=== PATIENT | male | born 1975 | race Caucasian/White ===

== ENCOUNTER 2022-11-25 21:39 | Emergency (ER) | payer OTHER, SELFPAY ==
[2022-11-25 21:47] VITALS: BP 145/105; PULSE 87; RESP 18; TEMP 36.6; O2SAT 99; BMI 32.3
[2022-11-25] MEDS: PROPARACAINE 0.5% OPHTH SOL 1 DROPS EYE-LEFT (22:03)
[2022-11-25] MEDS: FLUORESCEIN 1 MG STRIP EYE-BOTH (22:03)
--- NOTE | 2022-11-25 23:02 | ED_ITS ---
HPI - General Adult General Chief complaint: Eye Problems Stated complaint: L eye problems Time Seen by Provider: 11/25/22 22:39 Source: patient Mode of arrival: Ambulatory History of Present Illness HPI narrative: 47-year-old male here for evaluation of irritation to his left eye. He states that for the past day or so his left eye has been swollen and irritated. He does have a history of allergies and takes allergy medication but he is no right eye symptoms began his medications have not been affecting anything with his left eye. He is had no vision changes other than some blurry vision because of all the watering. No foreign body sensation. He does wear corrective lenses. Related Data Previous Rx's Medication Instructions Recorded erythromycin 5 mg/gram (0.5 %) eye 0.5 inch EYE-LEFT TID 3 days #3.5 11/25/22 ointment grams Allergies Allergy/AdvReac Type Severity Reaction Status Date / Time No Known Drug Allergies Allergy Verified 11/25/22 21:47 Review of Systems Eyes Eyes: Reports system reviewed and no additional complaints, except as documented ENT Ears, Nose, Mouth, and Throat: Reports system reviewed and no additional complaints, except as documented Integumentary/Breasts Skin/Breast: Reports system reviewed and no additional complaints, except as documented Patient History Social History Smoking Status: Never smoker Smoking Status: Never smoker Substance Use Type: does not use Exam Initial Vital Signs Initial Vital Signs: Vital Signs Temperature 98 F 11/25/22 21:47 Pulse Rate 87 11/25/22 21:47 Respiratory Rate 18 11/25/22 21:47 Blood Pressure 145/105 H 11/25/22 21:47 Pulse Oximetry 99 11/25/22 21:47 Oxygen Delivery Method Room Air 11/25/22 21:47 Eyes Other: Patient does obvious irritation to his left eye. With fluorescein staining there does appear to be a small uptake with potential foreign body long the visual axis at approximately 0400 hours position. Pupils are equal round and reactive. No sign of any open globe. Procedures Foreign Body EYE Location: eye (L) Topical anesthetic used: proparacaine Foreign body: metal Evidence of corneal penetration: No Technique: cotton tip swab, needle and electric enrique Procedure performed under: slit-lamp Post-procedure medication: ophthalmic antibiotic Patient tolerated procedure: well and no complications Course Orders Ordered: Discontinued Medications Erythromycin (Erythromycin Ophth 1 Gm Oint) 1 applic EYE-LEFT NOW ONE Stop: 11/25/22 23:03 Last Admin: 11/25/22 23:05 Dose: 1 applic Documented By: JEFF Fluorescein Sodium (Fluorescein 1 Mg Strip) 1 mg EYE-BOTH NOW ONE Stop: 11/25/22 22:01 Last Admin: 11/25/22 22:03 Dose: 1 mg Documented By: JEFF Proparacaine HCl (Proparacaine 0.5% Ophth Alejandrina) 1 drops EYE-LEFT NOW ONE Stop: 11/25/22 22:01 Last Admin: 11/25/22 22:03 Dose: 1 drop Documented By: JEFF Vital Signs Vital signs: Vital Signs - 8 hr 11/25/22 21:47 Temperature 98 F Pulse Rate 87 Respiratory Rate 18 Blood Pressure 145/105 H Pulse Oximetry 99 Oxygen Delivery Method Room Air Medical Decision Making MDM Narrative Medical decision making narrative: Under direct visualization initially with the Wood's lamp with fluorescein staining and then with slit lamp there was a metal foreign body located in his left eye. Additionally tried to remove contact applicator and with needle but were unsuccessful. A bur was then used. I was able to completely remove the metal foreign body and there was no residual rust ring. This did leave a corneal abrasion. Will place on erythromycin ointment. Will discharge patient home with return precautions. He expressed understanding and agreement. Discharge Plan Departure Patient Disposition: Home Clinical Impression: Foreign body of eye, external, left Instructions: DI for Foreign Body in the Eye Activity Restrictions/Additional Instructions: Use the erythromycin ointment as directed like we discussed. A prescription was sent to [facility]. Contact your primary doctor for a follow-up. Return to emergency department for new or worsening symptoms. Prescriptions: New erythromycin 5 mg/gram (0.5 %) ointment 0.5 inch EYE-LEFT TID 3 Days Qty: 3.5 0RF Referrals: Zeeshan Cedeño PA-C [Primary Care Provider] - Stand Alone Forms: Patient Portal/API, Work Release Note
[2022-11-25] MEDS: ERYTHROMYCIN OPHTH 1 GM OINT 1 APPLIC EYE-LEFT (23:05)
== END 2022-11-25 23:10 | disposition home or self-care (01) ==
PROVIDERS: Emergency Provider Emergency Medicine; PCP Physician Assistant
DX: T15.92XA Foreign body on external eye, part unspecified, left eye, initial encounter (principal)
CPT/HCPCS: 65222; 99282; 99283